=== PATIENT | female | born 1990 | race Caucasian/White ===

== ENCOUNTER 2025-01-18 13:43 | Emergency (ER) | payer BC ==
[~2025-01-18] VITALS: Ht 165.1 cm; Wt 63.5 kg
[2025-01-18] MEDS: IV NS 0.9% 1,000 ML BAG IV ONE (15:00)
[2025-01-18] MEDS: ONDANSETRON HCL/PF 4 MG/2 ML VIAL IVP ONE (15:00)
[2025-01-18] MEDS ORDERED: MAG HYDROX/AL HYDROX/SIMETH 30 ML UDC ONE (15:10)
[2025-01-18] MEDS ORDERED: PANTOPRAZOLE 40 MG VIAL ONE (15:10)
[2025-01-18] MEDS ORDERED: ONDANSETRON HCL/PF 4 MG/2 ML VIAL ONE (15:10)
[2025-01-18] MEDS ORDERED: LIDOCAINE VISCOUS 2% UD 15 ML UDC ONE (15:10)
[2025-01-18] MEDS ORDERED: DICYCLOMINE HCL 10 MG CAPSULE PO ONE (15:11)
[2025-01-18] MEDS ORDERED: ACETAMINOPHEN 325 MG TABLET ONE (15:11)
[2025-01-18] MEDS ORDERED: FAMOTIDINE/PF INJ 20 MG/2 ML VIAL IV ONE (15:11)
[2025-01-18] MEDS: LIDOCAINE VISCOUS 2% UD 15 ML UDC MM ONE (15:30)
[2025-01-18] MEDS: FAMOTIDINE/PF INJ 20 MG/2 ML VIAL IV ONE (15:30)
[2025-01-18] MEDS: PANTOPRAZOLE 40 MG VIAL IV ONE (15:30)
[2025-01-18] MEDS: ACETAMINOPHEN 325 MG TABLET PO ONE (15:31)
[2025-01-18] MEDS: DICYCLOMINE HCL 10 MG CAPSULE PO ONE (15:31)
[2025-01-18] MEDS: MAG HYDROX/AL HYDROX/SIMETH 30 ML UDC PO ONE (15:31)
[2025-01-18 16:26] LABS: PLATELET COUNT (AUTO) 217 K/uL (150-450); RED BLOOD CELL COUNT(AUTO) 4.73 MIL/uL (4.0-5.2); RED CELL DISTRIBUTION WIDTH 14.3 % (11.5-15.0); WHITE BLOOD COUNT (AUTO) 10.7 K/uL (4.3-11.0)
[2025-01-18 16:38] LABS: INR 0.99 (0.91-1.10)
[2025-01-18 16:43] LABS: ASPARTATE AMINOTRANSFERASE 13.0 U/L (15-37); CALCIUM, SERUM 8.9 mg/dL (8.5-10.1); CREATININE 0.9 mg/dL (0.6-1.3); SODIUM SERUM 137.0 mmol/L (136-145); TOTAL PROTEIN, SERUM 7.8 g/dL (6.4-8.2); UREA NITROGEN, BLOOD 3.0 mg/dL (7-18)
[2025-01-18 17:58] LABS: OCCULT BLOOD STOOL NEGATIVE (NEGATIVE)
[2025-01-18] MEDS ORDERED: FAMO20TA80 PO (18:11)
[2025-01-18] MEDS ORDERED: ONDA4TAB5 PO (18:11)
[2025-01-18] MEDS ORDERED: PANT40TA49 PO (18:11)
[2025-01-18] MEDS ORDERED: DICY10CA37 PO (18:11)
[2025-01-18] MEDS ORDERED: ACET325C7 PO (18:12)
[2025-01-18 18:30] VITALS: BP 115/74; TEMP 98.8; O2SAT 99
== END 2025-01-18 18:30 | disposition home or self-care (01) ==
LOC: ER 13:43
DX: B34.9 Viral infection, unspecified (principal); F39 Unspecified mood [affective] disorder; K92.0 Hematemesis; Z86.59 Personal history of other mental and behavioral disorders; Z91.013 Allergy to seafood; Z79.899 Other long term (current) drug therapy; Z20.822 Contact with and (suspected) exposure to COVID-19
CPT/HCPCS: 99284; 96374; 96375; 71045; 96361; 87426; 85025; 80048; 83690; 80076; 82272; 36415; 85730; 86850; 84702; J1308; J2405; J7030; J2470